=== PATIENT | female | born 1960 | race Caucasian/White ===

== ENCOUNTER 2024-04-19 09:10 | Inpatient (IN) | payer MEDICAID ==
[~2024-04-19] VITALS: Ht 162.6 cm; Wt 68.1 kg
[2024-04-19 09:10] VITALS: BP_SYST 106; PULSE 86; RESP 19; TEMP 98.2; O2SAT 94
[2024-04-19] MEDS: NACL 0.9% 1,000 ML IV ONE ×2 (09:46→11:56)
[2024-04-19 10:30] LABS: BASOPHILS % (AUTO) 0.2 % (0.0-2.0); EOSINOPHILS % (AUTO) 0.2 % (0.0-4.0); HEMOGLOBIN 11.7 g/dL (12.0-16.0); LYMPHOCYTES # (AUTO) 0.9 K/uL (1.0-5.5); LYMPHOCYTES % (AUTO) 9.6 % (20.5-51.5); MEAN CORPUSCULAR HEMOGLOBIN 30 pg (27-31); MEAN CORPUSCULAR HGB CONC 33 % (32-36); MEAN CORPUSCULAR VOLUME 91 fL (79.0-98.0); MONOCYTES # (AUTO) 0.7 K/uL (0.0-1.0); MONOCYTES % (AUTO) 7.2 % (1.7-9.3); NEUTROPHILS # (AUTO) 7.6 K/uL (1.8-7.7); NEUTROPHILS % (AUTO) 82.8 % (40.0-70.0); PLATELET COUNT (AUTO) 166 K/uL (130-430); RED BLOOD CELL COUNT(AUTO) 3.96 MIL/uL (4.2-6.2); RED CELL DISTRIBUTION WIDTH 14.3 % (9.0-15.0); WHITE BLOOD COUNT (AUTO) 9.2 K/uL (4.8-10.8)
[2024-04-19 10:50] LABS: ALANINE AMINOTRANSFERASE 52 U/L (12-78); ANION GAP 5 (5-15); ASPARTATE AMINOTRANSFERASE 34 U/L (10-37); BILIRUBIN,DIRECT 0.1 mg/dL (0.0-0.3); CALCIUM 8.6 mg/dL (8.4-11.0); CARBON DIOXIDE 31 mmol/L (23-29); CHLORIDE 104 mmol/L (98-107); CREATINE KINASE, TOTAL 48 U/L (26-192); CREATININE 0.77 mg/dL (0.55-1.30); GFR AFRICAN AMERICAN 98 mL/min (>90); GLUCOSE 128 mg/dL (74-106); SALICYLATE 1 mg/dL (3-30); SODIUM SERUM 140 mmol/L (136-145); TOTAL BILIRUBIN 0.4 mg/dL (0.0-1.0); TOTAL PROTEIN, SERUM 6.2 g/dL (6.4-8.3); UREA NITROGEN, BLOOD 16 mg/dL (8-21)
[2024-04-19 10:58] LABS: ACETAMINOPHEN < 1 ug/mL (1-30); ALCOHOL, BLOOD < 3 mg/dL (<10); GFR NON AFRICAN-AMERICAN 81 mL/min (>90)
[2024-04-19 11:01] LABS: PROTHROMBIN TIME 9.9 SECS (9.5-12.5)
[2024-04-19 11:08] LABS: ACETONE, SERUM NEGATIVE (NEGATIVE)
[2024-04-19 12:20] LABS: BILIRUBIN,URINE 1+ (NEGATIVE); BLOOD, URINE NEGATIVE (NEGATIVE); CLARITY/URINE CLEAR (CLEAR); COLOR,URINE YELLOW (YELLOW); GLUCOSE,URINE NEGATIVE (NEGATIVE); KETONES,URINE NEGATIVE (NEGATIVE); LEUKOCYTE ESTERASE ,URINE NEGATIVE (NEGATIVE); NITRITE, URINE NEGATIVE (NEGATIVE); PROTEIN URINE NEGATIVE (NEGATIVE)
[2024-04-19] MEDS: D5LR 1,000 ML IV ONE (12:36)
[2024-04-19 12:43] LABS: BARBITURATE, URINE NEGATIVE (NEG <=200); BENZODIAZEPINE, URINE NEGATIVE (NEG <=150); CANNABINOID, URINE POSITIVE (NEG <=50); COCAINE, URINE NEGATIVE (NEG <=150); METHAMPHETAMINES SCREEN,URINE NEGATIVE (NEG <=500); OPIATE, URINE NEGATIVE (NEG <=100); PHENCYCLIDINE SCREEN,URINE NEGATIVE (NEG <=25); UR TRICYCLIC ANTIDEPRESSANTS NEGATIVE (NEG <=300); URINE AMPHETAMINE POSITIVE (NEG <=500); URINE METHADONE NEGATIVE (NEG <=200); URINE OXYCODONE SCREEN NEGATIVE (NEG <=100)
[2024-04-19 15:54] VITALS: BP_SYST 113; PULSE 68; RESP 16; TEMP 98; O2SAT 97
[2024-04-19 16:00] VITALS: BP_SYST 113; PULSE 68; RESP 16; TEMP 98.6; O2SAT 97
[2024-04-19 19:00] VITALS: O2SAT 96
[2024-04-19 20:00] VITALS: BP_SYST 104; PULSE 68; RESP 18; TEMP 98.3; O2SAT 98
[2024-04-19] MEDS: LORazepam 2 MG/ML VIAL IVP PRN (21:48)
[2024-04-20 00:05] VITALS: BP_SYST 97; PULSE 64; RESP 15; TEMP 98; O2SAT 94
[2024-04-20] MEDS: POTASSIUM CHLORIDE 20 MEQ TABLET.ER PO ONE (00:32)
[2024-04-20 06:21] LABS: BASOPHILS % (AUTO) 0.2 % (0.0-2.0); EOSINOPHILS # (AUTO) 0.1 K/uL (0.0-0.4); HEMATOCRIT 33.4 % (36-48); HEMOGLOBIN 10.9 g/dL (12.0-16.0); LYMPHOCYTES # (AUTO) 1.6 K/uL (1.0-5.5); LYMPHOCYTES % (AUTO) 24.6 % (20.5-51.5); MEAN CORPUSCULAR HEMOGLOBIN 30 pg (27-31); MEAN CORPUSCULAR HGB CONC 33 % (32-36); MEAN CORPUSCULAR VOLUME 90 fL (79.0-98.0); MONOCYTES # (AUTO) 0.5 K/uL (0.0-1.0); MONOCYTES % (AUTO) 8.1 % (1.7-9.3); NEUTROPHILS # (AUTO) 4.4 K/uL (1.8-7.7); NEUTROPHILS % (AUTO) 66.1 % (40.0-70.0); PLATELET COUNT (AUTO) 141 K/uL (130-430); RED CELL DISTRIBUTION WIDTH 13.9 % (9.0-15.0); WHITE BLOOD COUNT (AUTO) 6.6 K/uL (4.8-10.8)
[2024-04-20 07:06] LABS: ALBUMIN 2.5 g/dL (3.4-4.8); CALCIUM 8.2 mg/dL (8.4-11.0); CREATININE 0.78 mg/dL (0.55-1.30); FREE T4 (FREE THYROXINE) 1.2 ng/dl (0.8-1.5); POTASSIUM 4.1 mmol/L (3.5-5.1); THYROID STIMULATING HORMONE 1.49 uIu/mL (0.36-3.74); TOTAL BILIRUBIN 0.3 mg/dL (0.0-1.0); TOTAL PROTEIN, SERUM 5.2 g/dL (6.4-8.3)
[2024-04-20 08:01] VITALS: BP_SYST 125; PULSE 66; RESP 18; TEMP 97.6; O2SAT 99
[2024-04-20 08:05] VITALS: O2SAT 99
[2024-04-20 11:10] VITALS: BP_SYST 123; PULSE 68; RESP 18; TEMP 97.9; O2SAT 99
[2024-04-20 16:15] VITALS: BP_SYST 127; PULSE 72; RESP 16; TEMP 98; O2SAT 98
[2024-04-20 20:00] VITALS: BP_SYST 98; PULSE 75; RESP 18; TEMP 98.6; O2SAT 97
[2024-04-20] MEDS: OLANZapine 5 MG TABLET PO SCH (20:42)
[2024-04-21 02:00] VITALS: BP_SYST 110; PULSE 71; RESP 20; TEMP 98.2; O2SAT 96
[2024-04-21 06:22] LABS: BASOPHILS % (AUTO) 0.4 % (0.0-2.0); EOSINOPHILS # (AUTO) 0.1 K/uL (0.0-0.4); EOSINOPHILS % (AUTO) 1.7 % (0.0-4.0); HEMATOCRIT 36.5 % (36-48); HEMOGLOBIN 11.8 g/dL (12.0-16.0); LYMPHOCYTES # (AUTO) 1.7 K/uL (1.0-5.5); LYMPHOCYTES % (AUTO) 24.4 % (20.5-51.5); MEAN CORPUSCULAR HEMOGLOBIN 30 pg (27-31); MEAN CORPUSCULAR HGB CONC 32 % (32-36); MEAN CORPUSCULAR VOLUME 92 fL (79.0-98.0); MONOCYTES # (AUTO) 0.6 K/uL (0.0-1.0); NEUTROPHILS # (AUTO) 4.5 K/uL (1.8-7.7); NEUTROPHILS % (AUTO) 64.5 % (40.0-70.0); PLATELET COUNT (AUTO) 158 K/uL (130-430); RED BLOOD CELL COUNT(AUTO) 3.99 MIL/uL (4.2-6.2); RED CELL DISTRIBUTION WIDTH 14.2 % (9.0-15.0)
[2024-04-21 06:52] LABS: ALBUMIN 2.4 g/dL (3.4-4.8); CALCIUM 8.1 mg/dL (8.4-11.0); CREATININE 0.67 mg/dL (0.55-1.30); TOTAL BILIRUBIN 0.2 mg/dL (0.0-1.0); TOTAL PROTEIN, SERUM 5.3 g/dL (6.4-8.3)
[2024-04-21 08:10] VITALS: BP_SYST 110; PULSE 80; RESP 20; TEMP 98.7; O2SAT 97
[2024-04-21 08:53] VITALS: O2SAT 98
[2024-04-21 11:11] VITALS: BP_SYST 111; PULSE 83; RESP 18; TEMP 98.5; O2SAT 98
[2024-04-21 16:03] VITALS: BP_SYST 109; PULSE 80; RESP 18; TEMP 98.6; O2SAT 98
[2024-04-21 20:00] VITALS: BP_SYST 117; PULSE 75; RESP 20; TEMP 97.5; O2SAT 96
[2024-04-22] VITALS (7 sets, daily range): BP systolic 94–133; PULSE 61–85; RESP 14–20; TEMP 97.5–99.5; O2SAT 96–98
[2024-04-22] MEDS: MULTIVITS,CA,MINERALS/IRON/FA 1 TABLET PO SCH (08:39)
[2024-04-22 13:07] LABS: HEPATITIS A AB, IgM Negative (Negative); HEPATITIS B CORE AB, IgM Negative (Negative); HEPATITIS B SURFACE AG Negative (Negative); HEPATITIS C VIRUS AB Non Reactive (Non Reactive)
[2024-04-23 01:12] VITALS: BP_SYST 117; PULSE 86; RESP 18; TEMP 97.6; O2SAT 97
[2024-04-23 07:30] VITALS: BP_SYST 125; PULSE 65; RESP 14; TEMP 97.2; O2SAT 96
[2024-04-23 09:00] VITALS: O2SAT 96
[2024-04-23 11:11] VITALS: BP_SYST 105; PULSE 70; RESP 16; TEMP 98.2; O2SAT 96
[2024-04-23 13:11] VITALS: BP_SYST 125; PULSE 65; RESP 14; TEMP 97.2; O2SAT 96
== END 2024-04-23 14:50 | DRG 52 ==
LOC: SED 09:10 → EDBD 11:45 → STU 11:45 → SMU 04-20 14:06
PROVIDERS: ADMIT Internal Medicine; ATTEND Internal Medicine
DX: G92.9 Unspecified toxic encephalopathy (principal); E44.0 Moderate protein-calorie malnutrition; D64.9 Anemia, unspecified; F19.10 Other psychoactive substance abuse, uncomplicated; F23 Brief psychotic disorder; F12.90 Cannabis use, unspecified, uncomplicated; F15.90 Other stimulant use, unspecified, uncomplicated; Z59.00 Homelessness unspecified; Z68.25 Body mass index [BMI] 25.0-25.9, adult
CPT/HCPCS: 36415; 70450-TC; 71045; 80048; 80053; 80074; 80076; 80307; 81001; 81003; 82009; 82140; 82550; 83605; 84439; 84443; 84484; 85025; 85610; 85730; 93005; 97110-GP; 97112-GP; 97116-GP; 97530-GP; 99285; G0378; G0480; G0481; G0482; J2060